=== PATIENT | female | born 1960 | race Caucasian/White ===

== ENCOUNTER 2024-11-04 09:42 | Day surgery (SDC) | payer MEDICARE ==
[2024-11-04] MEDS ORDERED: Sodium Chloride 0.9(Preservative Free) 10 ML IJ ONE (09:43)
[2024-11-04] MEDS ORDERED: methylPREDNISolone acetate IM ONE (09:43)
[2024-11-04] MEDS ORDERED: LIDOCAINE HCL 1% 50 MG/5 ML VL IJ ONE (09:43)
[2024-11-04] MEDS ORDERED: propofoL IV ONE (12:13)
--- NOTE | 2024-11-04 14:33 | XRAY ---
Indication: Lumbar PRINCE. Intraoperative fluoroscopy provided for 16 seconds. 3 digital spot images submitted for interpretation demonstrates posterior needle tip projecting over lumbosacral junction. Small amount of contrast injected for needle tip placement. Correlate with intraoperative findings/report. Incidental left aortoiliac stents.
[2024-11-04] MEDS ORDERED: Lactated Ringers 1,000 ML IV ONE (14:35)
--- NOTE | 2024-11-04 14:36 | XRAY ---
16 seconds of fluoroscopy used in surgery for a lumbar PRINCE.
== END 2024-11-04 12:45 | disposition home or self-care (01) ==
LOC: SDC-PAIN 09:42
PROVIDERS: ATTEND Psychiatry & Neurology Pain Medicine
DX: M54.16 Radiculopathy, lumbar region (principal)
CPT/HCPCS: 62323; 72100; J1010; J2704; Q9966